=== PATIENT | male | born 1985 | race Two or more races ===

== ENCOUNTER 2024-04-17 15:25 | Inpatient (IN) | payer OTHER ==
[2024-04-17 15:54] VITALS: BMI 20.5
[2024-04-17] MEDS ORDERED: chlordiazePOXIDE HCL 25 MG CAPSULE PO PRN (17:00)
[2024-04-17] MEDS ORDERED: guaiFENesin 600 MG TABLET.ER (FP) PO PRN (17:01)
[2024-04-17] MEDS ORDERED: DICYCLOMINE HCL 10 MG CAPSULE PO PRN (17:01)
[2024-04-17] MEDS ORDERED: NALOXONE (NARCAN) HCL 4 MG/0.1 ML SPRAY NS PRN (17:01)
[2024-04-17] MEDS ORDERED: BENZONATATE 200 MG CAPSULE PO PRN (17:01)
[2024-04-17] MEDS ORDERED: LOPERAMIDE HCL 2 MG CAPSULE PO PRN (17:01)
[2024-04-17] MEDS ORDERED: ACETAMINOPHEN 325 MG TABLET (FP) PO PRN (17:01)
[2024-04-17] MEDS ORDERED: MAGNESIUM HYDROX 2400MG/30ML ORAL SUSPENSION 30 ML CUP PO PRN (17:01)
[2024-04-17] MEDS ORDERED: MAG HYDROX/AL HYDROX/SIMETH 30 ML UNIT-DOSE CUP PO PRN (17:01)
[2024-04-17] MEDS ORDERED: IBUPROFEN 600 MG TABLET (FP) PO PRN (17:01)
[2024-04-17] MEDS ORDERED: BENZOCAINE/MENTHOL (CHLORASEPTIC ) LOZENGE MM PRN (17:01)
[2024-04-17] MEDS ORDERED: P-EPHED 60MG/TRIPROLIDI 2.5MG TABLET PO PRN (17:01)
[2024-04-17] MEDS ORDERED: NICOTINE POLACRILEX 2 MG LOZENGE BC PRN (17:01)
[2024-04-17] MEDS ORDERED: POLYETHYLENE GLYCOL (HEALTHYLAX) 3350 17 GM PACKET PO PRN (17:01)
[2024-04-17] MEDS ORDERED: ONDANSETRON *ODT* 4 MG TABLET SL PRN (17:01)
[2024-04-17] MEDS ORDERED: BISMUTH SUBSALICYLATE 524 MG/30 ML PO PRN (17:01)
[2024-04-17] MEDS ORDERED: NICOTINE POLACRILEX 2 MG GUM BUC PRN (17:01)
[2024-04-17] MEDS ORDERED: METHOCARBAMOL 500 MG TABLET PO PRN (17:01)
[2024-04-17] MEDS: THIAMINE 100 MG TABLET PO SCH (22:42)
[2024-04-17] MEDS: chlordiazePOXIDE HCL 25 MG CAPSULE PO SCH (22:42)
[2024-04-17] MEDS: MELATONIN 5 MG TABLETS PO SCH (22:42)
[2024-04-17] MEDS: DIVALPROEX SODIUM 500 MG TABLET E.C. PO ONE (23:35)
[2024-04-17] MEDS: QUEtiapine FUMARATE 100 MG TABLET (FP) PO ONE (23:35)
[2024-04-18] MEDS: IBUPROFEN 400 MG TABLET (FP) PO PRN (06:01)
[2024-04-18 09:02] LABS: HEMATOCRIT 36.3 % (35.4-49); HEMOGLOBIN 12.2 GM/dL (11.7-16.9); MCH 34.2 pg (25.7-33.7); MCHC 33.6 g/dl (32.0-35.9); MEAN PLT VOLUME 8.7 fl (7.5-11.1); PLATELET COUNT 379 10^3/uL (134-434); RBC 3.56 M/mm3 (4.00-5.60); RDW 14.8 % (11.9-15.9)
[2024-04-18 09:29] LABS: POTASSIUM 4.8 mmol/L (3.5-5.1)
[2024-04-18 09:33] LABS: ALBUMIN 3.2 g/dl (3.4-5.0); BLOOD UREA NITROGEN 17.6 mg/dL (7-18)
[2024-04-18 09:36] LABS: CREATININE 1.2 mg/dL (0.55-1.3)
[2024-04-18 09:37] LABS: BILIRUBIN,TOTAL 0.2 mg/dL (0.2-1); TOT PROT 6.3 g/dl (6.4-8.2)
[2024-04-18] MEDS: PRENATAL VITAMINS W/ FOLIC ACID TABLET (FP) PO SCH (10:03)
[2024-04-18] MEDS: hydrOXYzine PAMOATE 25 MG CAPSULE (FP) PO PRN (10:03)
[2024-04-18] MEDS: QUEtiapine FUMARATE 100 MG TABLET (FP) PO SCH (22:06)
[2024-04-18] MEDS: DIVALPROEX SODIUM 500 MG TABLET E.C. PO SCH (22:06)
[2024-04-19] MEDS: chlordiazePOXIDE HCL 25 MG CAPSULE PO SCH (07:28)
[2024-04-19 08:04] VITALS: TEMP 97.3
[2024-04-19 09:43] VITALS: BP 111/80; PULSE 99; RESP 18
[2024-04-19] MEDS ORDERED: NALOXONE (NYS OPIOID OVERDOSE PROGRAM) 4 MG/0.1 ML SPRAY NS PRN (11:30)
[2024-04-20] MEDS ORDERED: chlordiazePOXIDE HCL 10 MG CAPSULE PO PRN
[2024-04-20] MEDS ORDERED: chlordiazePOXIDE HCL 10 MG CAPSULE PO SCH (05:00)
[2024-04-21] MEDS ORDERED: chlordiazePOXIDE HCL 10 MG CAPSULE PO SCH (05:00)
[2024-04-22] MEDS ORDERED: chlordiazePOXIDE HCL 10 MG CAPSULE PO ONE (05:00)
== END 2024-04-19 11:33 | disposition home or self-care (01) | DRG 775 ==
LOC: YASAS 15:25 → Y6N 20:11
PROVIDERS: ADMIT Allergy & Immunology; ATTEND Surgery
PROC: HZ2ZZZZ Detoxification Services for Substance Abuse Treatment (ICD-10-PCS; principal; 2024-04-17)
DX: F10.230 Alcohol dependence with withdrawal, uncomplicated (principal); F17.210 Nicotine dependence, cigarettes, uncomplicated; F25.9 Schizoaffective disorder, unspecified; J45.909 Unspecified asthma, uncomplicated; Z86.59 Personal history of other mental and behavioral disorders; Z56.0 Unemployment, unspecified; Z59.00 Homelessness unspecified
CPT/HCPCS: 36415; 80053; 80164; 85027; 86780; 93005; 93010